=== PATIENT | male | born 1985 | race Two or more races ===

== ENCOUNTER 2018-10-20 16:30 | Outpatient (CLI) | payer BC, OTHER ==
[2018-10-20] MEDS ORDERED: IOVERSOL 320 100 ML VIAL IVP ONE ×2 (16:46→17:30)
--- NOTE | 2018-10-21 05:10 | CT Report ---
Reason: HEMATURIA Procedure Date: 10/20/2018 Accession Number: [id number] / [id number] Procedure: CT - IVP CPT Code: FULL RESULT: EXAM: CT ABDOMEN AND PELVIS WITHOUT AND WITH CONTRAST (CT IVP) EXAM DATE: 10/20/2018 05:24 PM. CLINICAL HISTORY: Hematuria. COMPARISONS: None. TECHNIQUE: Routine helical imaging was performed through the kidneys, ureters and bladder in the precontrast, postcontrast and delayed phase. IV Contrast: Yes. Reconstructions: Coronal and sagittal. In accordance with CT protocol optimization, one or more of the following dose reduction techniques were utilized for this exam: automated exposure control, adjustment of mA and/or KV based on patient size, or use of iterative reconstructive technique. FINDINGS: Lung Bases: Unremarkable. Right Kidney/Ureter: No stones, hydronephrosis, or solid-appearing masses. Incidental 2 cm cyst. Left Kidney/Ureter: No stones, hydronephrosis, or solid-appearing masses. Other Abdominal Organs: The liver, spleen, pancreas, gallbladder, and adrenal glands are unremarkable. Peritoneal Cavity/Bowel: No free fluid, free air or adenopathy. No masses. Bowel loops appear unremarkable. Pelvic Organs: No bladder stones, obstruction or masses. The visualized pelvic organs are unremarkable. Vasculature: Normal. Bones: No significant abnormality. Other: None. IMPRESSION: Negative CT IVP. No urinary tract solid masses, stones, or obstruction. RADIA
== END 2018-10-20 16:31 | disposition home or self-care (01) ==
LOC: DI 16:30
PROVIDERS: ATTEND Specialist
DX: R31.9 Hematuria, unspecified (principal)
CPT/HCPCS: 74178; Q9967

== ENCOUNTER 2021-09-21 19:50 | Outpatient (CLI) | payer BC | END 2021-09-21 19:51 | disposition critical access hospital (66) | LOC: EMS 19:50 | DX: R55 Syncope and collapse (principal); R06.02 Shortness of breath | CPT/HCPCS: A0425; A0429 ==

== ENCOUNTER 2021-09-21 20:08 | Emergency (ER) | payer BC ==
--- NOTE | 2021-09-21 20:21 | ED Physician Documentation ---
History of Present Illness - Stated complaint Stated Complaint: SYNCOPE, CONSTIPATION - Additonal information Additional information: 35-year-old male presents emergency department after syncopal episode at home. He reports eating a [place] dish a lot of sugared cucumbers. He states that sometimes when he eats this causes stomach upset. He was having the need to go to the bathroom and defecate when he was walking and suddenly began to feel like the lights were going out. He knew that he was going to faint so he grabbed the wall and dropped to the knee. He had a very brief lapse in consciousness. His he was able to get up after a minute and walk to the bathroom on his own where he successfully defecated. I am he had a similar episode of syncope about 8 years ago. Patient denies that he was having any chest pain or shortness of air. Denies that he was having abdominal pain then or now. No pertinent past surgical history. Denies any other pertinent past medical history. Review of Systems Constitutional: denies: Fever, Chills Eyes: reports: Reviewed and negative Nose: reports: Reviewed and negative Throat: reports: Reviewed and negative Cardiac: reports: Reviewed and negative Respiratory: reports: Reviewed and negative GI: reports: Reviewed and negative : reports: Reviewed and negative Skin: reports: Reviewed and negative Musculoskeletal: reports: Reviewed and negative Neurologic: reports: Syncope. denies: Focal weakness, Numbness, Difficulty speaking Psychiatric: reports: Reviewed and negative Endocrine: reports: Reviewed and negative PD PAST MEDICAL HISTORY - Past Medical History Respiratory: Pneumonia - Past Surgical History Past Surgical History: No - Present Medications Home Medications: Ambulatory Orders Medication Instructions Recorded Confirmed Fexofenadine [Geni] 60 mg PO PRN PRN 09/21/21 09/21/21 - Allergies Allergies/Adverse Reactions: Allergies Allergy/AdvReac Type Severity Reaction Status Date / Time No Known Drug Allergies Allergy Verified 09/21/21 20:19 - Social History Does the pt smoke?: Yes Smoking Status: Current every day smoker Does the pt drink ETOH?: No Does the pt have substance abuse?: No PD ED PE NORMAL - General General: Alert and oriented X 3, No acute distress, Well developed/nourished - HEENT HEENT: Atraumatic, Moist mucous membranes, Pharynx benign - Neck Neck: Supple, no meningeal sign, No adenopathy - Cardiac Cardiac: RRR, No murmur - Respiratory Respiratory: No respiratory distress - Abdomen Abdomen: Normal bowel sounds, Soft, Non tender - Derm Derm: Normal color, Warm and dry, No rash - Extremities Extremities: No deformity, Normal ROM s pain - Neuro 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, 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 Eye Opening: Spontaneous Motor: Obeys Commands Verbal: Oriented GCS Score: 15 Results - Vitals Vitals: Vital Signs - 24 hr 09/21/21 09/21/21 20:11 20:37 Temperature 37.2 C Heart Rate 61 Heart Rate [ 59 L Sitting] Heart Rate [ 60 Standing] Heart Rate [ 61 Supine] Respiratory 12 Rate Blood Pressure 115/67 Blood Pressure 118/68 [Sitting] Blood Pressure 110/74 [Standing] Blood Pressure 112/64 [Supine] O2 Saturation 100 Oxygen O2 Source Room air - EKG (time done) *2014 Rate: Rate (enter#) (61) Rhythm: NSR [place]: Normal Intervals: Normal RI QRS: Normal Ischemia: Normal ST segments Compare to prior EKG: Old EKG unavailable Computer interpretation: Agree with computer - Labs Labs: Laboratory Tests 09/21/21 09/21/21 09/21/21 20:28 20:28 20:28 WBC 11.0 H RBC 4.43 L Hgb 14.3 Hct 41.6 L MCV 93.9 MCH 32.3 H MCHC 34.4 RDW 11.9 L Plt Count 230 MPV 10.4 Neut # (Auto) Not Reportable Lymph # (Auto) Not Reportable Dickson # (Auto) Not Reportable Eos # (Auto) Not Reportable Baso # (Auto) Not Reportable Absolute Nucleated RBC Not Reportable Total Counted 100 Band Neuts % (Manual) 1 Abnorm Lymph % (Manual) 0 Nucleated RBC % Not Reportable Neutrophils # (Manual) 6.6 Lymphocytes # (Manual) 3.3 Monocytes # (Manual) 0.4 Eosinophils # (Manual) 0.7 Basophils # (Manual) 0.0 Differential Comment MANUAL DIFFERENTIAL WBC Morphology NORMAL APPEARANCE Platelet Estimate NORMAL (130-450,000) Platelet Morphology NORMAL APPEARANCE RBC Morph Micro Appear NORMAL APPEARANCE Sodium 139 Potassium 3.7 Chloride 105 Carbon Dioxide 26 Anion Gap 8.0 BUN 24 H Creatinine 1.1 Estimated GFR (MDRD) 76 L Glucose 113 H Calcium 8.6 Total Bilirubin 0.4 AST 22 ALT 20 Alkaline Phosphatase 81 Troponin I High Sens 4.5 Total Protein 7.0 Albumin 4.2 Globulin 2.8 Albumin/Globulin Ratio 1.5 Lipase 37 - Rads (name of study) cxr Radiology: Final report received (Mild early left lower lobe pneumonia just above the dome of the left hemidiaphragm) PD MEDICAL DECISION MAKING - ED course Complexity details: reviewed results, re-evaluated patient, considered differential, d/w patient, d/w family ED course: 35-year-old male presents emergency department for evaluation of a very brief syncopal episode that occurred at home when he began to feel the sudden need to defecate. He was going to the bathroom when suddenly his vision and oral began to closing on him. He knew that he was going to pass out so he dropped to his knee. He had a brief lapse in consciousness of perhaps 1 or 2 seconds. He had similar about 8 years ago also when he had the urge to defecate. Screening labs are unremarkable. EKG is also nonischemic. His cardiopulmonary exam is negative. Orthostatics were also negative. Chest x-ray is interpreted by radiology as possible mild or early left lower lobe pneumonia. I discussed this finding with the patient. Given that he has no cough fevers or congestion he would decline treatment at this time unless his symptoms change which given his exam and history I think is reasonable. Patient will discuss the syncopal episode with his primary care provider to determine if further testing such as Holter monitor is necessary moving forward. However given the history I suspect he had a vasovagal event Emergent return precautions were discussed Departure - Departure Disposition: 01 Home, Self Care Clinical Impression: Vasovagal syncope Condition: Stable Record reviewed to determine appropriate education?: Yes Instructions: ED Syncope Vasovagal Comments: You are seen today for evaluation after a very brief syncopal episode at home. I suspect that you had a vasovagal event as you were feeling the urge to defecate. You had a similar event about 8 years ago. Your screening labs and EKG today are all essentially normal. The chest x-ray in my interpretation is normal however the radiologist feels that there may be a mild or very early left lower lobe pneumonia. However as you do not have any cough, congestion fevers or abnormal lung sounds I think it is appropriate to defer treatment unless your symptoms change such as development of cough, chest pain fevers or difficulty breathing. I would like you to discuss this ED visit with your primary care provider. You would benefit from possible follow-up or Holter monitor.
[2021-09-21 20:35] LABS: BASOPHILS % (AUTO) 0.4 %; EOSINOPHILS % (AUTO) 9.4 %; HCT - HEMATOCRIT 41.6 % (42.0-52.0); HGB - HEMOGLOBIN 14.3 g/dL (14.0-18.0); LYMPHOCYTES % (AUTO) 25.4 %; MEAN CORPUSCULAR HEMOGLOBIN 32.3 pg (27.0-31.0); MEAN CORPUSCULAR HGB CONC 34.4 g/dL (32.0-36.0); MEAN CORPUSCULAR VOLUME 93.9 fL (80.0-94.0); MEAN PLATELET VOLUME 10.4 fL (7.4-11.4); MONOCYTES % (AUTO) 6.6 %; PLT - PLATELET COUNT 230 10^3/uL (130-450); RED BLOOD COUNT 4.43 10^6/uL (4.70-6.10); RED CELL DISTRIBUTION WIDTH 11.9 % (12.0-15.0)
[2021-09-21 20:38] LABS: ABNORMAL LYMPHS % (MANUAL) 0 %
[2021-09-21 20:48] LABS: ALBUMIN 4.2 g/dL (3.2-5.5); ALBUMIN/GLOBULIN RATIO 1.5 (1.0-2.2); BILIRUBIN,TOTAL 0.4 mg/dL (0.2-1.0); CALCIUM 8.6 mg/dL (8.5-10.3); CREATININE 1.1 mg/dL (0.6-1.2); POTASSIUM 3.7 mmol/L (3.5-5.0)
--- NOTE | 2021-09-21 20:53 | XRAY Report ---
PROCEDURE: Chest 1 View X-Ray INDICATIONS: Chest Pain TECHNIQUE: One view of the chest was acquired. COMPARISON: 2 view chest 06/23/2013 FINDINGS: Surgical changes and devices: None. Lungs and pleura: No pleural effusions or pneumothorax. Lungs are mildly abnormal with what appears to be a mild or early pneumonia at the left lung base just above the diaphragm. Mediastinum: Mediastinal contours appear normal. Heart size is normal. Bones and chest wall: No suspicious bony lesions. Overlying soft tissues appear unremarkable. IMPRESSION: Mild or early left lower lobe pneumonia just above the dome of the left hemidiaphragm. Reviewed by: Kwame Melara MD on 09/21/2021 8:52 PM PDT Approved by: Kwame Melara MD on 09/21/2021 8:52 PM PDT Station ID: [id number]
[2021-09-21 20:59] LABS: BAND NEUTROPHILS % (MANUAL) 1 %; EOSINOPHILS # (MANUAL) 0.7 10^3/uL (0-0.7); LYMPHOCYTES # (MANUAL) 3.3 10^3/uL (1.5-3.5); LYMPHOCYTES % (MANUAL) 30 %; MONOCYTES # (MANUAL) 0.4 10^3/uL (0.0-1.0); NEUTROPHILS # (MANUAL) 6.6 10^3/uL (1.5-6.6)
[2021-09-21 21:00] LABS: PLATELET ESTIMATE, MANUAL NORMAL (130-450,000) (NORMAL); PLATELET MORPHOLOGY NORMAL APPEARANCE (NORMAL); RBC MORPHOLOGY (MULTIPLE) NORMAL APPEARANCE (NORMAL); WBC MORPHOLOGY (MULTIPLE) NORMAL APPEARANCE (NORMAL)
[2021-09-21 21:01] LABS: DIFFERENTIAL COMMENT MANUAL DIFFERENTIAL
[2021-09-21 21:20] VITALS: BP 110/74
== END 2021-09-21 21:26 | disposition home or self-care (01) ==
LOC: EDUNIT# → ED 20:08
DX: R55 Syncope and collapse (principal); F17.200 Nicotine dependence, unspecified, uncomplicated
CPT/HCPCS: 36415; 80053; 83690; 84484; 85025; 93005; 99283; 99284

== ENCOUNTER 2021-10-03 14:41 | Outpatient (CLI) | payer BC ==
--- NOTE | 2021-10-03 16:05 | XRAY Report ---
PROCEDURE: Chest 2 View X-Ray INDICATIONS: ABNORMAL CHEST XRAY TECHNIQUE: 2 view(s) of the chest. COMPARISON: Chest x-ray one view, 09/21/2021. Chest x-ray 2 views, 06/23/2013. FINDINGS: Surgical changes and devices: None. Lungs and pleura: No pleural effusions or pneumothorax. Lungs are clear. Left basilar infiltrate s een on the last exam has resolved. Mediastinum: Mediastinal contours are normal. Heart size is normal. Bones and chest wall: No suspicious bony abnormalities. Soft tissues appear unremarkable. IMPRESSION: No acute cardiopulmonary disease. Resolution of left basilar pneumonia since the last ex am. Reviewed by: Gregg Mccurdy MD on 10/03/2021 4:04 PM PDT Approved by: Gregg Mccurdy MD on 10/03/2021 4:04 PM PDT Station ID: [id number]
== END 2021-10-03 14:42 | disposition home or self-care (01) ==
LOC: DI.N 14:41
PROVIDERS: ATTEND Physician Assistant Medical
DX: R91.8 Other nonspecific abnormal finding of lung field (principal); Z87.01 Personal history of pneumonia (recurrent)

== ENCOUNTER 2022-02-21 15:45 | Outpatient (CLI) | payer BC ==
[2022-02-21 16:30] VITALS: BP 120/72
--- NOTE | 2022-02-21 16:30 | SLEEP CARE CONSULTATION ---
Information from patient questionnaire entered by Ronen Burgess. I have reviewed and concur with the information entered by Ronen Burgess. This document represents the service I personally performed and the decisions made by , Pita Elliott ARNP. History of Present Illness Service Date and Time: 02/21/2022 1545 Reason for Visit: New patient Chief Complaint: reports: Snoring, Observed pauses in breathing Date of Onset: TWO YEARS Usual bedtime: 930PM Time it takes to fall asleep: 15 MINUTES Snores at night: Yes Observed to quit breathing while asleep: Yes Sleeps alone due to snoring: No Number of times waking at night: 1 Reasons for waking at night: reports: Choking (1-2 times a week), Snoring, Other (SPOUSE SEEING ME CHOKING ) Toss, Turn, or Twitch while sleeping: Yes (twitch) Recalls having dreams: Yes Usually gets out of bed at: 5AM Feels refreshed in the morning: Yes Morning headache: No Sleepy or fatigued during the day: No Ever fallen asleep while driving: No Takes day naps: No Dreams during day naps: No Prior sleep studies: No Additional HPI information: I had the pleasure of seeing HANNAH HOUSE today regarding the possibility of him having a sleep disorder. His current complaints are snoring and observed pauses in breathing. His has been waking him up at night because he will stop breathing at night and he also snores loudly. 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 Patient is Single and lives in [place]. Have you smoked in the past 12 months: Yes Cigarettes per day (20/pack): 10 Years of smokin Smoking Pack Years: 5.0 Alcohol use: No Caffeine use: Yes Caffeine amount and frequency: 3 PER DAY Family History Family history of sleep disordered breathing: No Allergies and Home Medications Drug allergies reviewed: Yes (NKDA) Home medication list reviewed: Yes Allergy and home medication list: Allergies No Known Drug Allergies Allergy (Verified 09/21/21 20:19) Medications: Acyclovir, daily Claritin, prn Review of Systems Weight loss over past 5 years: 40 POUNDS Cardiovascular: denies: high blood pressure Respiratory: denies: shortness of breath Gastrointestinal: denies: heartburn Neurological: denies: headaches, head trauma Psychiatric: denies: anxiety, depression Ear/Nose/Throat: reports: nasal congestion, sinus problems, wisdom teeth removed. denies: tonsillectomy Endocrine: denies: thyroid disease Immunologic: reports: allergies to food or environment (seasonal) Physical Exam Vital signs obtained and entered by: NEYMAR DYNAMO TENDER Blood Pressure: 120/72 (LEFT ARM ) Cuff size: regular Heart Rate: 57 O2 Saturation: 99 Height: 5 ft 9 in Weight: 218 lb Body Mass Index: 32.1 BMI Classification: Obese Neck circumference: 17.5 (INCHES) Mouth and throat: narrow oropharynx Soft palate: long Hard palate: normal Uvula: normal Uvula visualization: 50% Mallampati Class II Tongue: enlarged in size with teeth don on lateral edges Tonsils: small Heart: regular rate and rhythm Lungs: clear bilaterally Impression and Plan 1. Suspected Obstructive Sleep Apnea-Hypopnea Syndrome, as suggested by a history of loud and irregular snoring, observed cessation of breath while asleep and gasping or choking in sleep. Narrow oropharynx and obesity are common predisposing factors for obstructive sleep apnea-hypopnea syndrome. I recommend proceeding to polysomnography to confirm the diagnosis and to assess severity. If the patient has significant sleep disordered breathing, a manual CPAP titration study will also be performed to find the optimal treatment pressure. I informed the patient of what the sleep studies involve and after some discussion, obtained agreement to proceed. The pathophysiology of obstructive sleep apnea-hypopnea syndrome was discussed with the patient and health risks of cardiovascular and cerebrovascular disease if not treated. 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 Patient agreed to plan. * Schedule polysomnography * Avoid long distance driving or driving when feeling sleepy. * Avoid alcohol, sedative and muscle relaxant around bedtime. * Attempt to lose weight. * Review instructions provided by trained office staff on how to prepare for the sleep study. * Return for follow-up after sleep study completed. Counseling Topics: Weight loss health impact Visit Type: In Office Time Spent with Patient (minutes): 28 Provider Statement: I spent 100% of the Face to Face Visit with the patient with greater than 50% spent counseling the patient and coordination of care.
== END 2022-02-21 15:46 | disposition home or self-care (01) ==
LOC: SC 15:45
PROVIDERS: ATTEND Nurse Practitioner Family
DX: R06.83 Snoring (principal); G47.8 Other sleep disorders; E66.9 Obesity, unspecified; Z68.32 Body mass index [BMI] 32.0-32.9, adult; F17.210 Nicotine dependence, cigarettes, uncomplicated
CPT/HCPCS: 99202; 99212

== ENCOUNTER 2022-03-19 14:40 | Outpatient (CLI) | payer BC | END 2022-03-19 14:41 | disposition home or self-care (01) | LOC: SC 14:40 | PROVIDERS: ATTEND Nurse Practitioner Family | DX: R09.02 Hypoxemia (principal) | CPT/HCPCS: 95806 ==

== ENCOUNTER 2022-04-22 15:39 | Outpatient (CLI) | payer BC ==
[2022-04-22 15:52] VITALS: BP 122/74
--- NOTE | 2022-04-22 15:52 | SLEEP CARE CONSULTATION ---
Information from patient questionnaire entered by Carline Lundberg. I have reviewed and concur with the information entered by Carline Lundberg. This document represents the service I personally performed and the decisions made by , Pita Elliott ARNP. History of Present Illness Service Date and Time: 04/22/2022 1539 Accompanied by: Spouse Initial [place] Sleepiness Scale score: 5 (02/21/22) Current [place] Sleepiness Scale score: 1 (04/22/2022) Additional HPI information: HANNAH HOUSE returns for follow up and results of the recently performed home sleep study. The patient was informed of the following findings: No significant sleep disordered breathing with an average AHI of 3.4 and mike oxygen saturation of 84%. I explained the pathophysiology behind obstructive sleep apnea. Patient does not have sleep apnea and was advised how weight gain could increase the risk of developing sleep apnea in the future. I strongly encouraged the patient to lose weight. Patient has moderate snoring. Snoring can be reduced by weight loss. Weight loss is best achieved with diet consult. Patient instructed to contact PCP for referral. Snoring can also be treated with an oral appliance from a dentist. Advised to check insurance coverage. In addition, an ENT evaluation can be do to see if other treatment is indicated. Patient counseled not drink alcohol less than 4 hours before bedtime as it can increase snoring and apnea. Patient was cautioned about risks of drowsy driving until sleepiness symptoms resolve. Sleep Study - Results Type of Sleep Study: Home sleep study (COMPLETED 03/19/2022) Prior sleep studies: No Polysomnography/Home Sleep Study results: Physician Impression: The quality of the study is good. The length of the study is adequate (> 240 minutes). Please also see the tabulated and graphic data. 1. No significant sleep disordered breathing with an AHI of 3.4/hr and mike SaO2 of 84%. During the study, the patient had 9 apneas (9 obstructive, 0 central, 0 mixed) and 13 hypopneas. The longest episode lasted 97.0 seconds. The few respiratory events occurred only during supine sleep (supine AHI was 4.3 and non-supine, 0.00). 2. Hypoxemia (ICD-10 R09.02), minimal, with the lowest oxygen saturation of 84 % and 0.7 minutes with SaO2 under 90%. Baseline oxygen saturation was normal (Average oxygen saturation was 93%). Allergies and Home Medications Drug allergies reviewed: Yes (NKDA) Home medication list reviewed: Yes (no changes) Review of Systems Review of systems same as previous: Yes (no changes) Physical Exam Vital signs obtained and entered by: CARLINE Hill MA Blood Pressure: 122/74 (left arm) Cuff size: regular Heart Rate: 67 O2 Saturation: 96 Height: 5 ft 9 in Weight: 218 lb 3.2 oz Body Mass Index: 32.2 BMI Classification: Obese Impression and Plan Snoring but no significant sleep disordered breathing. Patient advised that often weight loss will reduce snoring as well as apnea risk. An oral appliance can also be used for snoring. This would require a dental consultation. Patient cautioned not to use other online appliances as can cause bite issues. A list of accredited dentists in [facility] and one local dentist who makes oral appliances is available in the office. Patient is advised to check if insurance will cover. An ENT consult can also be helpful to determine if any other treatment is an option. * Attempt to lose weight * Avoid alcohol consumption near bedtime * The patient is cautioned about driving until sleepiness is completely resolved. * Return as needed for follow up. Counseling Topics: Sleeping position, Weight loss health impact Visit Type: In Office Other Participants: Spouse/Significant Other Time Spent with Patient (minutes): 12 Provider Statement: I spent 100% of the Face to Face Visit with the patient with greater than 50% spent counseling the patient and coordination of care.
== END 2022-04-22 15:40 | disposition home or self-care (01) ==
LOC: SC 15:39
PROVIDERS: ATTEND Nurse Practitioner Family
DX: R06.83 Snoring (principal); E66.9 Obesity, unspecified; Z68.32 Body mass index [BMI] 32.0-32.9, adult
CPT/HCPCS: 99212

== ENCOUNTER 2022-05-06 15:45 | Emergency (ER) | payer OTHER, BC ==
[2022-05-06 15:52] VITALS: BP 137/79
--- NOTE | 2022-05-06 16:24 | XRAY Report ---
PROCEDURE: Hand 3 View LT INDICATIONS: Trauma TECHNIQUE: 3 views of the hand(s) acquired. COMPARISON: None FINDINGS: Bones: No fractures or dislocations. No suspicious bony lesions. Soft tissues: No suspicious soft tissue calcifications. Thin linear metallic density foreign body i s in the palmar soft tissues of the left hand at the base of the thumb. IMPRESSION: No fracture. No osseous lesion. If symptoms and/or clinical concern for pathology persists, further a ssessment with repeat plain film radiographs (7-10 days) or advanced imaging (CT, MR, bone scan) shou ld be considered. Thin metallic wire foreign body in the palmar soft tissues of the hand at the base of the thumb. Reviewed by: Carol Lopez MD, PhD on 05/06/2022 4:22 PM PST Approved by: Carol Lopez MD, PhD on 05/06/2022 4:22 PM PST Station ID: [id number]
--- NOTE | 2022-05-06 17:05 | ED Physician Documentation ---
History of Present Illness - Stated complaint Stated Complaint: HAND PAIN - Chief complaint Chief Complaint: Ext Problem - Additonal information Additional information: 36-year-old male presents emergency department for evaluation of a metal foreign body in his left hand. While at work about 2 months ago when he was taking apart a machine that has metal shavings he got a metal splinter. He thought that he had removed it and for a few weeks afterwards the hand and palm were mildly swollen and erythematous and it improved however yesterday evening he began having sudden pain and swelling of the palm of the hand proximal to the thumb. Patient is left-hand dominant. Uncertain of last tetanus. Review of Systems Constitutional: denies: Fever, Chills Musculoskeletal: reports: Joint pain PD PAST MEDICAL HISTORY - Past Medical History Respiratory: Pneumonia - Past Surgical History Past Surgical History: No - Present Medications Home Medications: Ambulatory Orders Medication Instructions Recorded Confirmed Acyclovir 400 mg PO DAILY 05/06/22 05/06/22 cephALEXin [Keflex] 500 mg PO Q6H #28 cap 05/06/22 - Allergies Allergies/Adverse Reactions: Allergies Allergy/AdvReac Type Severity Reaction Status Date / Time No Known Drug Allergies Allergy Verified 05/06/22 15:52 - Social History Does the pt smoke?: Yes Smoking Status: Current every day smoker Does the pt drink ETOH?: No Does the pt have substance abuse?: No PD ED PE EXPANDED - Extremities Extremities: Left hand (Moderate swelling erythema and mild induration to the palm of the left hand just below the thumb. Normal movement of the thumb. Some tenderness. No lymphangitis.) Results - Vitals Vitals: Vital Signs - 24 hr 05/06/22 15:49 Temperature 36.4 C L Heart Rate 54 L Respiratory 16 Rate Blood Pressure 137/79 H O2 Saturation 99 Oxygen O2 Source Room air - Rads (name of study) left hand Radiology: Final report received (Thin metallic foreign body in the palmar soft tissues of the hand at the base of the thumb) PD MEDICAL DECISION MAKING - ED course Complexity details: reviewed results, considered differential, d/w patient ED course: 36-year-old male presents emergency department for evaluation of a metal wire in his left hand. 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 About 2 months ago he got a splinter that he thought he removed. However yesterday it began to swell and become tender. X-ray does show a thin metallic wire foreign body in the palmar soft tissues of the left hand near the base of the thumb. He has normal movement of the thumb but is become acutely inflamed and with erythema and induration we will treat for a cellulitis. Patient will be started on Keflex. His tetanus is up-to-date as of 2020. 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 He will require referral to either hand or general surgery to have this removed likely under fluoroscopy. Given the time of which has been in the soft tissues its not likely that we would succeeded removing it here in the emergency department especially with active infection. Departure - Departure Disposition: 01 Home, Self Care Clinical Impression: Foreign body (FB) in soft tissue, Cellulitis of left hand, Work related injury Condition: Stable Record reviewed to determine appropriate education?: Yes Instructions: Cellulitis Dc Prescriptions: cephALEXin [Keflex] 500 mg PO Q6H #28 cap Comments: Justice unfortunately you still have a wire or piece of metal in the palm of your left hand. It has become acutely inflamed and infected. Given how long its been in the hand its not safe for the emergency department to try and remove it today. 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 It is likely that this would need to be done under fluoroscopy. I would like you to fill the prescription for the Keflex and begin taking 4 times a day for the next week. If despite the antibiotics you are having increasing pain, fevers redness develop any drainage from the hand or have red streaking in your arm you should return immediately to the ER.
== END 2022-05-06 17:52 | disposition home or self-care (01) ==
LOC: ED 15:45
DX: S61.442A Puncture wound with foreign body of left hand, initial encounter (principal); L03.114 Cellulitis of left upper limb; W45.8XXA Other foreign body or object entering through skin, initial encounter; Y93.89 Activity, other specified; Y99.0 Civilian activity done for income or pay; F17.200 Nicotine dependence, unspecified, uncomplicated
CPT/HCPCS: 1040M; 73130; 99283

== ENCOUNTER 2022-07-29 09:29 | Outpatient (CLI) | payer BC | END 2022-07-29 09:30 | disposition home or self-care (01) | LOC: DI 09:29 | PROVIDERS: ATTEND Physician Assistant Medical | DX: R00.1 Bradycardia, unspecified (principal); I51.7 Cardiomegaly | CPT/HCPCS: 93306 ==

== ENCOUNTER 2022-08-26 14:57 | Outpatient (CLI) | payer BC | END 2022-08-26 14:58 | disposition home or self-care (01) | LOC: MAC.MOP 14:57 | PROVIDERS: ATTEND Physician Assistant Medical | DX: R00.1 Bradycardia, unspecified (principal) | CPT/HCPCS: 93246 ==

== ENCOUNTER → 2022-09-18 | Outpatient (CLI) | payer BC | LOC: MAC.INF 10:30 | PROVIDERS: ATTEND Physician Assistant Medical | DX: I47.1 Supraventricular tachycardia (principal); I45.9 Conduction disorder, unspecified; I49.1 Atrial premature depolarization; I49.3 Ventricular premature depolarization; I49.8 Other specified cardiac arrhythmias | CPT/HCPCS: 93248 ==